=== PATIENT | female | born 1935 ===

== ENCOUNTER 2016-10-07 15:46 | Emergency (ER) | payer OTHER ==
[2016-10-07 16:22] VITALS: BP 153/80; PULSE 89; RESP 20; TEMP 98.2; O2SAT 99
--- NOTE | 2016-10-07 17:58 | ED PDOC ---
Lower Extremity Pain/Injury Time Seen by Provider: 10/07/16 17:14 Chief Complaint (Nursing): Lower Extremity Problem/Injury Chief Complaint (Provider): Left Ankle Injury History Per: Patient History/Exam Limitations: no limitations Onset/Duration Of Symptoms: Days (x2) Current Symptoms Are (Timing): Still Present Additional Complaint(s): Allyson Mayes is a 81 year old female that presents to the ED with left foot and ankle pain. Patient states that two days ago, she was walking down the steps when she accidentally twisted her left ankle, and has been experiencing pain to the foot and ankle since. She denies numbness, tingling, or other injuries. Past Medical History Reviewed: Historical Data, Nursing Documentation, Vital Signs Vital Signs: Last Vital Signs Temp 98.2 F 10/07/16 16:20 Pulse 89 10/07/16 16:20 Resp 20 10/07/16 16:20 BP 153/80 H 10/07/16 16:20 Pulse Ox 99 10/07/16 16:20 - Medical History PMH: HTN, Hypothyroidism - Family History Family History: States: Unknown Family Hx - Allergies Allergies/Adverse Reactions: Allergies Allergy/AdvReac Type Severity Reaction Status Date / Time No Known Allergies Allergy Verified 10/07/16 16:19 Review of Systems Musculoskeletal: Positive for: Leg Pain (left ankle pain), Foot Pain (left foot pain) Neurological: Negative for: Numbness (denies any numbness or tingling to left foot) Physical Exam - Reviewed Nursing Documentation Reviewed: Yes Vital Signs Reviewed: Yes - Physical Exam Appears: Positive for: Non-toxic, No Acute Distress Head Exam: Positive for: ATRAUMATIC, NORMOCEPHALIC Skin: Positive for: Normal Color, Warm Pulses-Dorsalis Pedis (L): 2+ Pulses-Dorsalis Pedis (R): 2+ Extremity: Positive for: Tenderness (left lateral malleolus tenderness, no foot tenderness), Capillary Refill (<2 seconds). Negative for: Deformity, Swelling Neurologic/Psych: Positive for: Alert, Oriented - ECG O2 Sat by Pulse Oximetry: 99 (RA) Pulse Ox Interpretation: Normal - Radiology X-Ray: Interpreted by Me (L ankle and foot x-ray) X-Ray Interpretation: No Acute Disease - Progress ED Course And Treament: Ankle kristyn wrapped by PA. ANDERSEN instructions given. Medical Decision Making Medical Decision Making: Impression: Left Foot and Ankle Injury Plan: * Acetaminophen 650 mg PO * X-Ray Left Foot * X-Ray Left Ankle * Reevaluation Scribe Attestation: Documented by Kendal Ruiz, acting as a scribe for Reagan Preston PA-C. Provider Scribe Attestation: All medical record entries made by the Scribe were at my direction and personally dictated by me. I have reviewed the chart and agree that the record accurately reflects my personal performance of the history, physical exam, medical decision making, and the department course for this patient. I have also personally directed, reviewed, and agree with the discharge instructions and disposition. Disposition - Clinical Impression Clinical Impression: Ankle injury - Patient ED Disposition Is Patient to be Admitted: No - Disposition Referrals: [facility] [Outside] Disposition: Routine/Home Disposition Time: 18:48 Condition: STABLE Instructions: Ankle Sprain (ED), RICE Therapy (ED) Print Language: CROATIAN
--- NOTE | 2016-10-08 09:31 | RAD ---
PROCEDURE: Left Ankle Radiographs. HISTORY: trauma COMPARISON: None available FINDINGS: BONES: Oral is a michel limits evaluation for acute fracture lines. No acute displaced fracture. Degenerative changes including small calcaneal enthesophyte. Calcification near the Achilles insertion site. JOINTS: No dislocation. SOFT TISSUES: Soft tissue swelling. No evidence of radiopaque foreign body. OTHER FINDINGS: None. IMPRESSION: Osseous demineralization. Degenerative changes. Soft tissue swelling. No acute displaced fracture or dislocation identified. If symptoms persist or if there is clinical concern, x-ray follow-up in 7-10 days should be considered.
--- NOTE | 2016-10-08 09:33 | RAD ---
PROCEDURE: Left Foot Radiographs. HISTORY: trauma COMPARISON: None available. FINDINGS: BONES: Osseous demineralization. Degenerative changes. Small calcaneal enthesophyte. Calcification near the Achilles insertion site. No acute displaced fracture. JOINTS: No dislocation. SOFT TISSUES: Soft tissue swelling. No evidence of radiopaque foreign body. OTHER FINDINGS: None. IMPRESSION: Degenerative changes. Osseous demineralization. Soft tissue swelling. No acute displaced fracture or dislocation identified. If symptoms persist, or if there is continued clinical concern, x-ray follow-up in 7-10 days should be considered.
== END 2016-10-07 19:00 | disposition home or self-care (01) ==
LOC: H.ER 15:46
DX: S99.922A Unspecified injury of left foot, initial encounter (principal); X50.9XXA Other and unspecified overexertion or strenuous movements or postures, initial encounter; Y92.89 Other specified places as the place of occurrence of the external cause; E03.9 Hypothyroidism, unspecified; I10 Essential (primary) hypertension